=== PATIENT | male | born 1985 | race Caucasian/White ===

== ENCOUNTER 2022-04-11 09:00 | Emergency (ER) | payer OTHER ==
[~2022-04-11] VITALS: Ht 167.6 cm; Wt 92.5 kg
[2022-04-11 09:11] VITALS: BP 140/62
[2022-04-11] MEDS ORDERED: LORAZEPAM 1 MG TABLET ONE (09:25)
[2022-04-11] MEDS: LORAZEPAM 1 MG TABLET PO ONE (09:27)
--- NOTE | 2022-04-11 09:30 | NUR ---
Patient discharged to home in stable condition. Written and verbal after care instructions given. Patient verbalizes understanding of instruction.
== END 2022-04-11 10:25 | disposition home or self-care (01) ==
LOC: ER 09:02
DX: F41.9 Anxiety disorder, unspecified (principal); Z88.8 Allergy status to other drugs, medicaments and biological substances